=== PATIENT | female | born 1995 | race Caucasian/White ===

== ENCOUNTER → 2018-10-10 | Outpatient (CLI) | payer BC ==
--- NOTE | 2018-10-10 18:10 | US ---
EXAM DESCRIPTION: Pelvis Transvaginal: Ultrasound. CLINICAL HISTORY: 22 years Female PELVIC PN. No control pills or HRT. LMP unknown. COMPARISON: None. TECHNIQUE: Endovaginal scanning; Campa-scale and Doppler modes. FINDINGS: Uterus 7.6 x 3.5 x 2.7. cm.. Endometrial thickness is 1.1 mm. Myometrium appears heterogeneous.. Uterus not retroflexed. Cervix contains fluid. Separate 4.7 mm cyst. Cul-de-sac contains minimal fluid. Right ovary 2.5 x 2.5 x 1.3 cm 5.5 mL.. Normal waveform and color Doppler vascularity. Multiple follicles but no cysts. Largest follicles or simple in appearance measuring 1.2 cm and 0.8 cm. Moderate amount of free fluid. Left ovary 2.7 x 2.1 x 1.9 5.7 mL.. Normal waveform and color Doppler vascularity. Multiple follicles. Largest follicle is anechoic with circumscribed art no wall thickening or intramural debris. 1.5 x 1.5 x 1.2 cm. No adnexal mass or free fluid. IMPRESSION: 1. Normal position and size of the uterus. No endometrial thickening or fluid. Fluid in the cervix along with a nabothian cyst. Minimal fluid in the cul-de-sac. 2. Free fluid in the right adnexa with multiple simple follicles in the right ovary which is not enlarged. No cysts or adnexal mass. 3. Multiple simple follicles in the left ovary which is not enlarged. No cyst, no free fluid or adnexal mass. Electronically signed by: Silvano Duarte MD 10/10/2018 6:07 PM CDT
== END ==
LOC: US 14:05
PROVIDERS: ATTEND Obstetrics & Gynecology
DX: N88.8 Other specified noninflammatory disorders of cervix uteri (principal)

== ENCOUNTER → 2019-04-18 | Outpatient (CLI) | payer BC | LOC: GMAJS 12:43 | PROVIDERS: ATTEND Physician Assistant | DX: F33.0 Major depressive disorder, recurrent, mild (principal) ==

== ENCOUNTER → 2020-06-10 | Outpatient (CLI) | payer BC | LOC: GMALS 15:51 | PROVIDERS: ATTEND Nurse Practitioner Acute Care | DX: R30.0 Dysuria (principal); R63.5 Abnormal weight gain; Z20.2 Contact with and (suspected) exposure to infections with a predominantly sexual mode of transmission ==

== ENCOUNTER → 2020-07-22 | Outpatient (CLI) | payer BC | LOC: GMALS 17:44 | PROVIDERS: ATTEND Nurse Practitioner Acute Care | DX: R30.0 Dysuria (principal) ==